=== PATIENT | female | born 1990 | race Caucasian/White ===

== ENCOUNTER 2018-11-03 11:52 | Emergency (ER) | payer MEDICARE, MEDICAID ==
[2018-11-03 12:33] LABS: Bilirubin Negative (Negative); Blood, Urine Trace (Negative); Clarity Slightly Cloudy (Clear); Glucose, Urine (Dipstick) Negative (Negative); Leukocyte Negative (Negative); Nitrite Negative (Negative); Protein, Urine (Dipstick) Negative (Neg-Trace)
[2018-11-03 12:39] LABS: Bacteria/HPF 1+ HPF (None Seen); Broad Cast None Seen LPF (None Seen); Calcium Oxalate Crystals None Seen HPF (None Seen); Cellular Cast None Seen LPF (None Seen); Epithelial Cast None Seen LPF (None Seen); Fatty Cast None Seen LPF (None Seen); Mucous/LPF None Seen LPF (<2+); Other Casts None Seen LPF (None Seen); Oval Fat Bodies/HPF None Seen HPF (None Seen); RBC/HPF 0-3 HPF (0-3); Red Blood Cell Cast None Seen LPF (None Seen); Renal Epithelial None Seen HPF (None Seen); Sperm/HPF None Seen HPF (None Seen); Transitional Epithelial None Seen HPF (None Seen); Trichomonas/HPF None Seen HPF (None Seen); Triple Phosphate Crystal None Seen HPF (None Seen); Unclassified Crystals None Seen HPF (None Seen); WBC/HPF 0-3 HPF (0-3); Waxy Cast None Seen LPF (None Seen); White Blood Cell Cast None Seen LPF (None Seen); Yeast-Budding None Seen HPF (None Seen); Yeast-Hyphae None Seen HPF (None Seen)
== END 2018-11-03 12:39 | disposition home or self-care (01) ==
LOC: BURERS 11:52
DX: O21.9 Vomiting of pregnancy, unspecified (principal); O99.332 Smoking (tobacco) complicating pregnancy, second trimester; F17.210 Nicotine dependence, cigarettes, uncomplicated; Z3A.20 20 weeks gestation of pregnancy
CPT/HCPCS: 81003; 81015; 99284

== ENCOUNTER 2019-02-21 19:54 | Emergency (ER) | payer MEDICARE, OTHER | END 2019-02-21 20:30 | disposition home or self-care (01) | LOC: BURERS 19:54 | DX: H60.92 Unspecified otitis externa, left ear (principal); Z79.899 Other long term (current) drug therapy | CPT/HCPCS: 99282 ==

== ENCOUNTER 2019-02-22 19:38 | Emergency (ER) | payer MEDICARE, OTHER ==
[2019-02-22] MEDS ORDERED: Lidocaine 2% PF 5 ML VIAL ONE (19:58)
== END 2019-02-22 20:08 | disposition home or self-care (01) ==
LOC: BURERS 19:38
DX: O99.89 Other specified diseases and conditions complicating pregnancy, childbirth and the puerperium (principal); H66.92 Otitis media, unspecified, left ear; H60.92 Unspecified otitis externa, left ear; O99.333 Smoking (tobacco) complicating pregnancy, third trimester; F17.210 Nicotine dependence, cigarettes, uncomplicated; Z79.899 Other long term (current) drug therapy; Z3A.33 33 weeks gestation of pregnancy
CPT/HCPCS: 99283; J2001

== ENCOUNTER → 2019-05-05 | Emergency (ER) | payer MEDICARE, OTHER | LOC: BURERS 11:44 | DX: L03.211 Cellulitis of face (principal); K02.9 Dental caries, unspecified; F17.210 Nicotine dependence, cigarettes, uncomplicated | CPT/HCPCS: 99283 ==

== ENCOUNTER 2019-08-13 12:33 | Emergency (ER) | payer MEDICARE, OTHER | END 2019-08-13 12:50 | disposition home or self-care (01) | LOC: BURERS 12:33 | DX: K04.7 Periapical abscess without sinus (principal); K02.9 Dental caries, unspecified; F17.210 Nicotine dependence, cigarettes, uncomplicated | CPT/HCPCS: 99283 ==

== ENCOUNTER 2019-09-07 16:59 | Emergency (ER) | payer MEDICARE, OTHER ==
[~2019-09-07 16:59] MED LIST: Iopamidol 370 76% 100 ML VIAL ONE
[2019-09-07 18:09] LABS: ALT (SGPT) 45 U/L (8-55); AST (SGOT) 32 U/L (5-34); Albumin 4.2 g/dL (3.5-5.0); Alkaline Phosphatase 97 U/L (40-110); Anion Gap 13 mmol/L (10-20); BUN (Urea Nitrogen) 8 mg/dL (7.0-18.7); Bilirubin, Total 0.9 mg/dL (0.2-1.2); Calc. Creatinine Clearance 0 mL/min (70-130); Calcium 9.1 mg/dL (7.8-10.44); Carbon Dioxide 24 mmol/L (22-29); Chloride 106 mmol/L (98-107); Estimated GFR-MDRD Greater than 90; Globulin 2.8 g/dL (2.4-3.5); Glucose 85 mg/dL (70-105); Potassium 3.6 mmol/L (3.5-5.1); Sodium 139 mmol/L (136-145)
[2019-09-07 18:10] LABS: BHCG - Serum Negative (NEGATIVE); Pregs Control Background? CLEAR/WHITE (CLR/WHITE); Pregs Control Bar Appear? YES (CONTROL BAR)
[2019-09-07 18:13] LABS: Hemoglobin 13.1 g/dL (12.0-16.0); Lymphocytes 10 % (21-51); MDiff Complete? YES; Mean Corpuscular HGB CONC 30.4 g/dL (32.0-36.0); Mean Corpuscular Volume 95.2 fL (78.0-98.0); Mean Platelet Volume 9.5 fL (7.4-10.4); Monocytes 9 % (0-10); Neutrophil 81 % (42-75); Platelet Count 327 thou/uL (130-400); RBC Distribution Width 13.2 % (11.5-14.5); Red Blood Cell (RBC) Count 4.54 mill/uL (4.20-5.40); White Blood Cell (WBC) Count 12.3 thou/uL (4.8-10.8)
[2019-09-07] MEDS ORDERED: Sodium Chloride 0.9% 100 ML ONE (18:19)
[2019-09-07] MEDS ORDERED: Ampicillin/Sulbactam 3 GM VIAL ONE (18:19)
[2019-09-07] MEDS ORDERED: Ketorolac Tromethamine 30 MG/ML VIAL ONE (18:25)
--- NOTE | 2019-09-07 19:05 | CT ---
CT OF THE NECK SOFT TISSUES WITH CONTRAST: 09/07/[address] of the neck was done for evaluation of dental pain and right neck swelling. There is an area of soft tissue swelling just anterior and lateral to the body of the mandible on the right side. There is a very small lucency, barely 1 cm in size, against the bone that may be a small abscess forming. No large fluid collections were seen. A rounded area just anterior to the mental po rtion of the mandible is probably not a current abscess. One of the mandibular teeth on the right rachel e near the soft tissue swelling has some lucency around its roots suggesting there may be an periapic al abscess. Remainder of the study showed no swelling in the throat. The airway is patent. No abnormalities of th e thyroid gland were appreciated. No abscess nodes were seen. The lung apices are displayed and are clear. IMPRESSION: Swelling anterolateral to the body of the mandible on the right side, most likely secondary to a dent al infection. A very small fluid collection is beginning to form adjacent to the bone. Findings discussed with Dr. Watkins at 1809 on 09/07/2019. POS: HOME
== END 2019-09-07 19:17 | disposition home or self-care (01) ==
LOC: BURERS 16:59
DX: K04.7 Periapical abscess without sinus (principal); F17.210 Nicotine dependence, cigarettes, uncomplicated
CPT/HCPCS: 70491; 80053; 83605; 84703; 85025; 87040; 94760; 96365; 96375; J0295; J1885; J3490; Q9967

== ENCOUNTER 2019-11-17 22:26 | Emergency (ER) | payer MEDICARE, OTHER ==
[2019-11-17] MEDS ORDERED: Lidocaine 2% PF 5 ML VIAL ONE (22:49)
[2019-11-17] MEDS ORDERED: Bacitracin 1 PK ONE (23:05)
== END 2019-11-17 23:12 | disposition home or self-care (01) ==
LOC: BURERS 22:26
DX: L60.0 Ingrowing nail (principal); F17.210 Nicotine dependence, cigarettes, uncomplicated
CPT/HCPCS: 11750

== ENCOUNTER 2020-08-10 02:24 | Emergency (ER) | payer MEDICARE, OTHER ==
[2020-08-10 02:54] LABS: Bilirubin Small (Negative); Blood, Urine Moderate (Negative); Clarity Turbid (Clear); Glucose, Urine (Dipstick) Negative (Negative); Ketone, Urine Trace mg/dL (Negative); Leukocyte Negative (Negative); Nitrite Negative (Negative); Protein, Urine (Dipstick) Negative (Neg-Trace); Specific Gravity, Urine 1.025 (1.005-1.030); pH, Urine 5.5 (5.0-9.0)
[2020-08-10 02:58] LABS: Pregnancy Test - Urine (BHCG) Negative (Negative); Pregu Control Background? CLEAR/WHITE (CLR/WHITE); Pregu Control Bar Appear? YES (CONTROL BAR); Specific Gravity 1.025 (1.002-1.036)
[2020-08-10 02:59] LABS: RBC/HPF 0-3 HPF (0-3)
[2020-08-10 03:00] LABS: Bacteria/HPF 1+ HPF (None Seen); Mucous/LPF 1+ LPF (<2+); WBC/HPF 0-3 HPF (0-3)
== END 2020-08-10 03:08 | disposition home or self-care (01) ==
LOC: BURERS 02:24
DX: K59.00 Constipation, unspecified (principal); E66.9 Obesity, unspecified; F17.210 Nicotine dependence, cigarettes, uncomplicated; Z71.6 Tobacco abuse counseling
CPT/HCPCS: 81003; 81015; 81025; 99406

== ENCOUNTER 2020-08-16 16:44 | Emergency (ER) | payer MEDICARE, OTHER ==
[2020-08-16 23:53] LABS: SARS-CoV-2 PCR by NAA Not Detected (NotDetected)
== END 2020-08-16 17:30 | disposition home or self-care (01) ==
LOC: BURERS 16:44
DX: R43.8 Other disturbances of smell and taste (principal); R09.81 Nasal congestion; F17.210 Nicotine dependence, cigarettes, uncomplicated; Z20.822 Contact with and (suspected) exposure to COVID-19
CPT/HCPCS: U0003; U0005; 87635; 99283

== ENCOUNTER 2023-02-20 21:57 | Emergency (ER) | payer MEDICARE, OTHER | END 2023-02-20 22:19 | disposition home or self-care (01) | LOC: BURERS 21:57 | DX: R10.9 Unspecified abdominal pain (principal); F41.9 Anxiety disorder, unspecified; F17.210 Nicotine dependence, cigarettes, uncomplicated | CPT/HCPCS: 99283 ==

== ENCOUNTER 2023-09-14 11:33 | Emergency (ER) | payer MEDICARE, OTHER ==
[2023-09-14] MEDS ORDERED: Amoxicillin/Potassium Clav 875 MG TAB ONE (12:13)
== END 2023-09-14 12:16 | disposition home or self-care (01) ==
LOC: BURERS 11:33
DX: K04.7 Periapical abscess without sinus (principal); F17.210 Nicotine dependence, cigarettes, uncomplicated
CPT/HCPCS: 99282

== ENCOUNTER 2024-05-01 19:33 | Emergency (ER) | payer OTHER ==
[2024-05-01 20:36] LABS: #Basophils 0.2 thou/uL (0.0-0.2); #Eosinophils 0.1 thou/uL (0.0-0.7); #Lymphocytes 2.9 thou/uL (1.20-3.40); #Monocytes 0.9 thou/uL (0.11-0.59); %Basophils 1.6 % (0.0-1.0); %Eosinophils 0.4 % (0.0-10.0); %Lymphocytes 22.1 % (21.0-51.0); %Monocytes 6.8 % (0.0-10.0); %Neutrophils 69.1 % (42.0-75.0); Hematocrit 42.7 % (36.0-47.0); Hemoglobin 15.1 g/dL (12.0-16.0); Mean Corpuscular HGB CONC 35.4 g/dL (32.0-36.0); Mean Corpuscular Hemoglobin 29.3 pg (27.0-31.0); Mean Corpuscular Volume 82.8 fl (78.0-98.0); Mean Platelet Volume 6.4 fL (7.4-10.4); Platelet Count 376 10x3/uL (130-400); RBC Distribution Width 10.1 % (11.5-14.5); Red Blood Cell (RBC) Count 5.15 mill/uL (4.20-5.40); White Blood Cell (WBC) Count 13.1 10x3/uL (4.8-10.8)
[2024-05-01 20:49] LABS: Bilirubin Small (Negative); Blood, Urine Negative (Negative); Glucose, Urine (Dipstick) 100 mg/dL (Negative); Ketone, Urine Trace mg/dL (Negative); Leukocyte Negative (Negative); Nitrite Negative (Negative); Protein, Urine (Dipstick) 30 mg/dL (Neg-Trace); Urobilinogen > or = 8.0 mg/dL (Less than 2)
[2024-05-01 20:52] LABS: Clarity Slightly Cloudy (Clear); Specific Gravity, Urine 1.028 (1.002-1.036)
[2024-05-01 20:53] LABS: Bacteria/HPF 1+ HPF (None Seen); CAUTI Indications for Culture Dysuria,urgency,freq; RBC/HPF 0-3 HPF (0-3); WBC/HPF 0-3 HPF (0-3)
[2024-05-01 20:54] LABS: ALT (SGPT) 150 U/L (Less than 34); AST (SGOT) 97 U/L (11-34); Albumin 3.8 g/dL (3.1-4.5); Alkaline Phosphatase 148 U/L (40-110); Anion Gap 19 mmol/L (10-20); BUN (Urea Nitrogen) 7 mg/dL (7.0-18.7); Bilirubin, Total 0.7 mg/dL (0.3-1.2); Calc. Creatinine Clearance 0 mL/min (70-130); Calcium 9.1 mg/dL (7.8-10.44); Carbon Dioxide 21 mmol/L (22-29); Chloride 103 mmol/L (98-107); Estimated GFR 120; Globulin 4.3 g/dL (2.4-3.5); Glucose 95 mg/dL (70-105); Potassium 2.8 mmol/L (3.5-5.1); Protein, Total 8.1 g/dL (6.0-8.3); Sodium 140 mmol/L (136-145); Urine Culture Reflex No No
[2024-05-01 20:55] LABS: Amphetamine Not Detected (NotDetected); Barbiturates Screen Not Detected (NotDetected); Benzodiazepine Screen Not Detected (NotDetected); Cocaine Metabolite Screen Not Detected (NotDetected); Methadone Not Detected (NotDetected); Methamphetamine Not Detected (NotDetected); Opiate Screen Not Detected (NotDetected); Oxycodone Screen Not Detected (NotDetected); Phencyclidine (PCP) Not Detected (NotDetected); THC/Cannabinoid Screen Detected (NotDetected); Tricyclic Screen Not Detected (NotDetected)
[2024-05-01 20:56] LABS: Pregnancy Test - Urine (BHCG) Negative (Negative); Pregu Control Background? CLEAR/WHITE (CLR/WHITE); Pregu Control Bar Appear? YES (CONTROL BAR); Specific Gravity 1.028 (1.002-1.036)
[2024-05-01] MEDS ORDERED: Potassium Chloride 20 MEQ TAB ONE (21:17)
[2024-05-01 21:40] LABS: Troponin I Less than 0.010 ng/mL (< 0.028)
== END 2024-05-01 22:03 | disposition home or self-care (01) ==
LOC: BURERS 19:33
DX: R00.2 Palpitations (principal); E87.6 Hypokalemia; E86.9 Volume depletion, unspecified; R79.89 Other specified abnormal findings of blood chemistry; R11.2 Nausea with vomiting, unspecified; F17.210 Nicotine dependence, cigarettes, uncomplicated; Z79.899 Other long term (current) drug therapy
CPT/HCPCS: 71045; 80053; 80306; 81001; 81025; 84443; 84484; 85025; 93005; 94760; 96360